=== PATIENT | male | born 1995 | race Caucasian/White ===

== ENCOUNTER 2018-05-24 08:13 | Day surgery (SDC) | payer OTHER | END 2018-05-24 13:09 | disposition home or self-care (01) | LOC: GIL 08:13 | DX: R19.4 Change in bowel habit (principal); K64.8 Other hemorrhoids; E66.01 Morbid (severe) obesity due to excess calories; Z68.35 Body mass index [BMI] 35.0-35.9, adult | CPT/HCPCS: 45378; 88305 ==